=== PATIENT | male | born 1945 | race Caucasian/White ===

== ENCOUNTER 2025-07-07 13:36 | Inpatient (IN) | payer MEDICARE, OTHER, SELFPAY ==
[2025-07-07 06:54] VITALS: BP 162/77
[2025-07-07] MEDS: NSS 1000 IV (07:31)
[2025-07-07] MEDS: TYLENOL 1000 MG PO (07:31)
--- NOTE | 2025-07-07 07:35 | ED.GENMED ---
History of Present Illness
General
Chief Complaint: Chest Pain
Time Seen by Provider: 07/07/25 07:08
History of Present Illness
History of Present Illness:
79-year-old male with history of A-fib status post ablation presenting to the emergency department for left-sided chest pain. Patient reports that he woke up this morning with some left-sided chest pain and substernal chest pain. He checked his
monitor which initially told him that his heart rate was normal. He then had chills and felt very cold so he checked his monitor again and noted that he was tachycardic. He was concerned that he could be in A-fib which prompted him to come to the
hospital. Does note for the past 2-week he has been having some lower back pain and some lower abdominal pain. He was going to go to the orthopedic doctor next week for assessment. Denies any known sick contacts. Denies any associated cough.
Denies any abdominal surgeries in the past. Denies additional acute medical complaints.
Past History
Past History
ED Past Medical History: Cancer (Melanoma Left arm)
ED Past Surgical History: Cardiac (Cardiac ablation)
Social History
Tobacco: Non-smoker
Alcohol: Occasional
Personal:
Living: with family
Phy Exam
Physical Exam
Physical Exam:
General: Well-appearing, no clinical signs of dehydration, nontoxic and in no acute distress
HEENT: protecting airway
Neck: appears supple
CV: Tachycardic, regular rhythm, no evidence of cyanosis
Resp: No accessory muscle use, no increased work of breathing, decreased air movement to left upper lung field
Abd: Soft and non-distended, generalized nonfocal tenderness
Extremities: No deformities, no swelling
Neuro: alert, no focal neurologic deficit
: deferred
Rectal: deferred
Psych: Normal affect
Skin: Intact
Scores
Heart Score for Chest Pain Patients
STEMI patient?: No
History: Slightly or Non-Suspicious
ECG: Nonspecific Repolarization
Age: >/= 65 years
Risk Factors: 1 or 2 Risk Factors
Troponin: </= Normal Limit
Heart Score for Chest Pain Patients: 4
Heart Score Risk: 20.3% MACE over next 6 weeks
Course
Orders/Labs/Results
Orders:
Orders
07/07/25 06:51
Electrocardiogram (*1) Urgent
Reason for Study: Chest Pain
EKG- Treatment ONCE
07/07/25 07:15
CR Chest - 2 Views Urgent
Comment:
Reason For Exam: chest pain
07/07/25 07:20
COVID-19 Antigen Urgent
Source: Nasal Swab
Complete Blood Count/With Diff Urgent
Comprehensive Metabolic Panel Urgent
Direct Bilirubin Urgent
Comment: ADD ON
Lipase Urgent
Troponin I Urgent
Influenza A+B Rapid Molecular Urgent
ALFREDO Source: Nasal Swab
Specimen Description:
07/07/25 07:28
0.9% Sodium Chloride 1000 ml [Nss] 1,000 ml IV BOLUS
Acetaminophen [Tylenol] 1,000 mg .ROUTE .STK-MED ONE
Acetaminophen [Tylenol] 1,000 mg PO NOW STA
07/07/25 07:39
CT Abd/pelvis W Iv Cont Urgent
Comment:
Reason For Exam: fever, generalized pain
07/07/25 09:10
US Abdomen Complete/Upper Urgent
Comment:
Reason For Exam: abd pain, fever, transaminitis and high t.bili
07/07/25 09:11
Urinalysis Reflex To Culture Urgent
Date Specimen was Collected: 07/07/25
Time Specimen was Collected: 08:58
Urine Microscopic Reflex Cult Urgent
07/07/25 09:41
EKG- Treatment ONCE
07/07/25 10:20
Electrocardiogram (*1) Urgent
Reason for Study: Chest Pain
07/07/25 10:22
Troponin I Urgent
07/07/25 10:58
GASTROINTESTINAL CONSULT Routine
Consulting Provider: Shahrzad Loya
Was physician already notified: Yes
07/07/25 11:01
Blood Culture Q30M
ALFREDO Source: Blood/Venous
Specimen Description:
Blood Culture Q30M
ALFREDO Source: Blood/Venous
Specimen Description:
07/07/25 12:00
Piperacillin/Tazo 3.375 Gram [Zosyn] 3.375 gram in 50 ml IV Q6H
07/07/25 12:12
Add On- LAB Routine
Tests Added?: lipase
07/07/25 12:44
MRI Abdomen [MR Abdomen W/o & W Contrast] Routine
Comment:
Reason For Exam: with MRCP - jaundice/fever
Recent pill cam endoscopy?: No
07/07/25 12:45
Admit/Transfer Patient As Directed
Co-Sign Provider:
Level of Care: Inpatient admission
Assign to:: Telemetry
Physician / Group: Margie/hospitalist
Diagnosis: fever, abd pain
Reason for Telemetry: Arrhythmia
Date to Stop Telemetry: 07/10/25
Time to Stop Telemetry: 11:00
Reason for Hospitalization: fever, abd pain
Expected length of stay greater than two midnights?: Yes
ELOS- Estimated Length of Stay in days: 3
I certify the patient meets the requirements for IP care: Yes
PRN Pain Medication Management As Directed
May give lesser potent ordered pain med per pt: Yes
preference::
Protocol:: Medication orders for pain may be administered in a
manner that supports deferring to patient preference
when the pt is:
- Requesting an ordered lesser potent pain medication.
Least to most potent pain medications are defined
as: acetaminophen < NSAID < tramadol < opioids
(morphine, oxycodone, hydromorphone).
- Requesting a lesser dose of the same medication IF
ORDERED.
- Requesting a less intrusive route of administration
if both routes are prescribed by the provider (PO <
IV).
07/07/25 12:46
Code Status As Directed
Resuscitation Status: Full Code
07/07/25 12:55
Add On- LAB Routine
Tests Added?: D bili
07/10/25 11:00
DC Protocol for Telemetry ONCE
Abnormal Lab Results
07/07/25 07/07/25
07:20 09:11
Absolute Lymphs (auto) 0.4 L 10^3/uL
(1.2-3.4)
Neutrophils % 90.7 H %
(42.2-75.2)
Lymphocytes % 6.7 L %
(20.5-51.1)
Monocytes % 1.4 L %
(1.7-9.3)
Chloride 108 H mmol/L
(98-107)
Glucose 108 H mg/dl
(70-99)
Total Bilirubin 3.3 H mg/dl
(0.2-1.3)
Direct Bilirubin 1.8 H mg/dl
(0.0-0.4)
AST 448 H U/L
(17-59)
ALT 230 H U/L
(0-50)
Urine Bacteria (Reflex) Few A
(Negative)
Urine Albumin (Reflex) 1+ A
(Neg - Trace)
07/07/25 07:20
07/07/25 07:20
Vital Signs
Initial and Last Documented VS:
Initial Vital Signs
Temp Pulse Resp BP Pulse Ox
102.4 F H 114 28 162/77 94
07/07/25 06:54 07/07/25 06:54 07/07/25 06:54 07/07/25 06:54 07/07/25 06:54
Last Documented Vital Signs
Temp Pulse Resp BP Pulse Ox
102.4 F H 73 21 162/77 94
07/07/25 06:54 07/07/25 13:15 07/07/25 12:45 07/07/25 06:54 07/07/25 07:38
MDM/Problems Addressed
MDM/Problems Addressed:
79-year-old male with history of A-fib status post ablation presenting for chest pain. Vital signs on arrival significant for fever and mild tachycardia.
On exam, patient is in no acute distress. Regarding initial complaint of chest pain, EKG obtained which does show some changes from prior with some ST depressions laterally. No ST elevation or STEMI criteria. Patient additionally is found to have
fever which makes infectious pathology more likely than ACS. Diminished air movement to the left upper lung field with concern for possible pneumonia versus effusion. Plan for chest x-ray imaging. Additionally, patient reports that he has been
having nonspecific abdominal pain for the past 2 weeks. In the setting of fever and some generalized discomfort on palpation. Will plan for laboratory analysis and CT imaging. Patient started on IV fluids, Tylenol for fever control
09:10 -patient CT shows possible esophagitis, which is not consistent with patient's symptoms. Chest x-ray without pneumonia or acute cardiopulmonary disease. However labs are concerning for elevated T. bili and transaminitis. Choledocholithiasis
is a consideration as well as ascending cholangitis in the setting of fever. Will obtain right upper quadrant ultrasound imaging
10:30 -ultrasound shows gallstones without evidence of acute cholecystitis. There is no obvious ductal dilatation. However given signs of gallstones with transaminitis and elevated T. bili, as well as upper abdominal pain going to the back, cannot
safely rule out obstructing biliary stone. For this reason we will admit for further monitoring and possible MRCP.
*Pulse Oximetry
SaO2: 94
Oxygen Mode of Delivery: Room air
Patient hypoxic: no
*EKG
Interpreted by ED Provider?: Yes
EKG Intrepretation Date: 07/07/25
EKG Intrepretation Time: 07:40
Interpretation: abnormal
Comparison EKG: changes noted (03/27/23)
Heart Rate: 106
Rate: tachycardiac
Rhythm: sinus
[place]: normal axis
Interval: normal interval
QRS Pattern: normal QRS
Ischemia: ST depression (laterally)
*Critical Care Note
Total Time (30-74mins, 75-104mins- exclusive of procedures): Not Applicable
ED Attending Note
-
Portions of this chart may have been created with voice recognition software.� Occasional wrong word or��sound alike� substitutions may have occurred due to the inherent limitations of voice recognition software.
Discharge Plan
Departure
Patient Disposition: Admit
Date of Disposition: 07/07/25
Time of Disposition: 10:55
Presentation/result/management discussed w/ accepting MD/DO: Hospitalist
Patient with high blood pressure during this ER visit?: No
Condition: Fair
Discharge Problem:
Fever, Abdominal pain, Transaminitis
Interventions
Interventions:
*Risk Screen - Suicide Last Done: 07/07/25 06:54
*General Assessment Last Done: 07/07/25 06:54
*Neglect/Abuse Screening Last Done: 07/07/25 06:54
*ED COVID-19 Vaccine History Last Done: 07/07/25 06:54
*ED Influenza Vaccine History Last Done: 07/07/25 06:54
ED- Cardiac Assessment Last Done: 07/07/25 07:47
[2025-07-07 07:39] LABS: Hematocrit 43.3 % (39.0-52.0); Hemoglobin 14.8 g/dL (13.0-18.0); Mean Corp Hgb Conc. 34.2 g/dL (33.0-37.0); Mean Corpuscular Volume 89.3 fL (80.0-94.0); Nucleated Red Blood Cells % 0 % (-); Platelet Count 153 10^3/uL (130-400); Red Cell Dist. Width 13.4 % (11.5-14.5)
[2025-07-07 07:50] LABS: ALT (SGPT) 230 U/L (0-50); AST (SGOT) 448 U/L (17-59); Albumin 4.1 g/dl (3.5-5.0); Alkaline Phosphatase 79 U/L (38-126); Blood Urea Nitrogen 20 mg/dl (9-20); Calcium 9.2 mg/dl (8.4-10.2); Carbon Dioxide 23 mmol/L (22-30); Chloride 108 mmol/L (98-107); Glucose 108 mg/dl (70-99); Potassium 4.2 mmol/L (3.5-5.1); Sodium 139 mmol/L (135-145); Total Protein 7.0 g/dl (6.3-8.2); eGFR > 60.00
[2025-07-07 07:55] LABS: COVID-19 Antigen Negative (Negative)
[2025-07-07 08:01] LABS: Troponin I 0.015 ng/ml
[2025-07-07 09:33] LABS: Urine Character Clear (Clear)
[2025-07-07 10:04] LABS: Urine Red Blood Cell 0-2 /HPF (0-2)
[2025-07-07 10:05] LABS: Urine White Cell 0-2 /HPF (0-5)
[2025-07-07 11:00] LABS: Troponin I 0.032 ng/ml
[2025-07-07 11:41] VITALS: BMI 35.9
--- NOTE | 2025-07-07 12:01 | HPS.HSE ---
Family Physician
-
Family Physician: Randy Cassidy
Chief Complaint
-
R sided Abd pain
History of Present Illness
HPI: 79-year-old male with PMH A-fib status post ablation, achalasia after ablation; p/w chest pain that woke him up in the morning.
He also c/o chills and felt tachycardic, with concern of being in A fib, hence presented to the hospital.
He c/o lower abdominal pain for about 2 weeks, and ongoing lower back pain for about 1 month.
Denies to other symptoms.
Medical History
Past Medical History
Past Medical History: Reports Arrhythmia and Other (melanoma)
Additional Past Medical History:
A-fib status post ablation
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
Past Surgical History: Reports Cardiac
Additional Past Surgical History:
A-fib status post ablation
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
Social History
Tobacco: Non-smoker
Alcohol: Occasional
Drug: None
Personal:
Living: With Family
Family History
Family History: Not pertinent
Allergies / Home Medications
Allergies reflects when Allergies were last updated in [facility].
Home Medications with original date entered in [facility]
Allergy/Medication List:
Allergies
Allergy/AdvReac Type Severity Reaction Status Date / Time
[id number] Reductase AdvReac myalgias, Verified 03/28/23 13:53
Inhibitor insomnia
Home Medications
coenzyme Q10 100 mg capsule (Co Q-10) 300 mg PO QPM Supplement 04/28/21
cholecalciferol (vitamin D3) 250 mcg (10,000 unit) tablet 250 mcg PO QPM Supplement 03/12/23
niacin 100 mg tablet 100 mg PO DAILY Supplement 07/07/25
therapeutic multivitamin 1 tab PO DAILY Supplement 07/07/25
Review of Systems
-
Abdomen/GI: Reports Abdominal Pain (RUQ, epigastric )
Musculoskeletal: Reports Other (BL lower back pain)
Physical Exam
Vital Signs
Vital Signs
Temp Pulse Resp BP Pulse Ox
39.1 C H 114 28 162/77 94
07/07/25 06:54 07/07/25 06:54 07/07/25 06:54 07/07/25 06:54 07/07/25 07:38
Physical Exam
General: Well Developed, Well Nourished, No Apparent Distress, Comfortable, Conversant and Obese
HEENT: NormoCephalic, Moist mucous membranes and Atraumatic
Respiratory: Clear and Non Labored Respirations; No Accessory Resp Muscle Use
Cardiac: S1/S2 and Regular Rhythm; No Murmur or Rub
GI: Soft, Non Tender, Non Distended and Normal Bowel Sounds; No Organomegaly
Rectal: Deferred by Provider
Musculoskeletal: No Clubbing, No Cyanosis and No Edema
Skin: No Rash
Neuro: Awake, Alert and Oriented
Psych: Calm and Intact Judgment/Insight
Laboratory Results
-
07/07/25 07:20
07/07/25 07:20
Laboratory Results
Total Bilirubin 3.3 mg/dl (0.2-1.3) H 07/07/25 07:20
AST 448 U/L (17-59) H 07/07/25 07:20
ALT 230 U/L (0-50) H 07/07/25 07:20
Alkaline Phosphatase 79 U/L (38-126) 07/07/25 07:20
Troponin I 0.032 ng/ml D 07/07/25 10:22
Data Reviewed
-
CT Scan: Report Reviewed by me
Ultrasound: Report Reviewed by me
Lab Data: Labs Reviewed by me
Impression/Plan
-
HPI: 79-year-old male with PMH A-fib status post ablation, achalasia after ablation; p/w chest pain that woke him up in the morning.
He also c/o chills and felt tachycardic, with concern of being in A fib, hence presented to the hospital.
He c/o lower abdominal pain for about 2 weeks, and ongoing lower back pain for about 1 month.
Denies to other symptoms.
Admission CT AP:
1. Mild wall thickening of the distal esophagus, which may be related to esophagitis or Donovan's esophagus.
2. No evidence of intestinal obstruction, bowel inflammatory process, nephrolithiasis, hydronephrosis, cholecystitis, or abscess formation.
3. Colonic diverticulosis without evidence of acute diverticulitis.
Abd US:
1. Multiple gallstones are seen within the gallbladder. No sonographic evidence of acute cholecystitis.
2. No additional sonographic abnormalities demonstrated.
A/P:
# likely sepsis POA, source ?ascending cholangitis
# transaminitis likely due to above
# Localized chest pain likely due to esophagitis noted on CT
Check MRI MRCP
Follow lipase level
Follow blood cultures x2
Start Zosyn
Admission UA showed few bacteremia, otherwise unrevealing
GI CS for possible cholangitis
# Lower back pain
CT showed No focal aggressive osseous lesions are seen. Mild degenerative change within the lumbar spine.
PT OT eval when able
# h/o A-fib status post ablation
not on AC
DVT ppx: Lovenox SQ
FC
DW at bedside
--- NOTE | 2025-07-07 12:06 | CON.GI ---
Addendum entered and electronically signed by Benja Bond MD 07/07/25 13:55:
Patient seen and examined, agree with nurse practitioner note. The patient is a 79-year-old male with past medical history as noted who presents with acute onset of epigastric pain. This morning awaking him from sleep had epigastric pain without
radiation or vomiting. He felt shaky though no fever at that time. Upon presentation he was found to have elevated LFTs with a bilirubin of 3.3, AST 448, ALT 230. He denies any pain similar to this in the past. His urine has been dark today. He
did have a fever to 102.4 in the emergency room though is now feeling much better with no further pain, nausea or vomiting. He does have a history of achalasia without treatment, though has not had any significant symptoms. By report he had an
evaluation of the [facility] though did not have any treatment. His last colonoscopy to [facility] was essentially remarkable by report. On exam he has mild epigastric tenderness and is jaundiced and icteric. Ultrasound showed
multiple gallstones though no suggestion of cholecystitis and no CBD dilation. CT scan of the chest showed small liver cyst and mild wall thickening of the distal esophagus.
1. Epigastric pain/elevated LFTs: Most consistent with CBD stone, possibly spontaneously passed given resolution of symptoms and normal size CBD. Cholecystitis is possible though again no obvious thickening noted on ultrasound and her symptoms
have improved. At this point we will await MRI, if positive for CBD stone we will plan ERCP. Would consult surgery as would recommend cholecystectomy at some point. Will continue await blood cultures and continue to biotics for now.
Original Note:
Consultation
-
Date/Time Consultation Requested: 07/07/25 1100
Date/Time Consultation Performed: 07/07/25 1200
Requesting Provider: Tori Hanson MD
Performing Provider: ASHISH Salas, Shahrzad Loya DO
Reason for Consultation: increased LFT's, fever, pain
Medical History
Chief Complaint / HPI
Chief Complaint: chest/abdominal pain
History of Present Illness:
Pt is a 79yo with hx PAF with prior ablation off anticoagulation, melanoma and basal cell CA, hypercholesterolemia, obesity, abnormal fasting glucose, achalasia with prior food impaction with onset of epigastric pain 07/06 then indigestion with
rigors at 4 am on 07/07 prompting ER evaluation. He initially was concern for cardiac issue and noted with some tachycardia prior to admission. On admission noted with stable CBC, but bili 3.3, AST 448, ALT 230, al phos 79 with rise in troponin
to 0.032 after admission and fever 102.4. Pt also admits to lower back pain over last month with Ibuprofen use of 6 tabs on 07/06. Pt otherwise admits to dark urine and chronic mild dysphagia but doing well with slow eating and drinking fluids
with meals. He denies odynophagia, nausea, vomiting, diarrhea, constipation, blood or black in stools. Last EGD 2022 with food impaction and colonoscopy at [facility]. He was due 2023 but not completed yet. No anticoagulation, no recent wt loss or
wt loss medications. Only on Vitamins. Imaging on admission with CT chest with distal esophageal thickening -esophagitis/mondragon's, diverticulosis, no GB thickening or CBD dilatation. US with multiple stones no thickening or biliary dilatation.
Past Medical History
Past Medical History: Arrhythmias (PAF), Cancer (melanoma), Hypercholesterolemia and Other (obesity, abnormal fasting glucose, achalasia)
Past Surgical History: Cardiac (ablation) and Other (melanoma and basal cell excision)
Social History
Tobacco: Non-Smoker
Alcohol: Occasional
Personal:
Living: With Family
Employment: Retired
Family History
Family History: Other (grandmother, father and uncle with colon CA)
Allergies / Home Medications
Allergy/AdvReac Type Severity Reaction Status Date / Time
[id number] Reductase AdvReac myalgias, Verified 03/28/23 13:53
Inhibitor insomnia
�Medication �Instructions �Recorded
coenzyme Q10 100 mg capsule (Co 300 mg PO QPM Supplement 04/28/21
Q-10)
cholecalciferol (vitamin D3) 250 250 mcg PO QPM Supplement 03/12/23
mcg (10,000 unit) tablet
niacin 100 mg tablet 100 mg PO DAILY Supplement 07/07/25
therapeutic multivitamin 1 tab PO DAILY Supplement 07/07/25
Review of Systems
-
History Source: Patient and Family
Constitutional: Reports Fever, Weight Gain and Other (rigors)
EENT: Reports No Symptoms
Respiratory: Reports No Symptoms
Cardiac: Reports Other (tachy)
Abdomen/GI: Reports Abdominal Pain and Other (indigestion)
: Reports Dark Urine
Musculoskeletal: Reports No Symptoms
Skin: Reports No Symptoms
Neurological: Reports Weakness
Endocrine: Reports No Symptoms
Hematologic/Lymphatic: Reports No Symptoms
Vital Signs
Temp Pulse Resp BP Pulse Ox
102.4 F H 114 28 162/77 94
07/07/25 06:54 07/07/25 06:54 07/07/25 06:54 07/07/25 06:54 07/07/25 07:38
Physical Exam
Exam
General: Well Developed and Well Nourished
HEENT: Other (slight jaundice )
Respiratory: Clear
Cardiac: Other (tachy)
GI: Soft, Non Distended and Tender (mild epigastric pain)
Musculoskeletal: No Clubbing and No Cyanosis
Skin: Warm and Dry
Neuro: Awake, Alert and AO x 3
Psych: Calm
Results
WBC 6.4 10^3/uL (4.8-10.8) 07/07/25 07:20
Hgb 14.8 g/dL (13.0-18.0) 07/07/25 07:20
Hct 43.3 % (39.0-52.0) 07/07/25 07:20
MCV 89.3 fL (80.0-94.0) 07/07/25 07:20
Plt Count 153 10^3/uL (130-400) 07/07/25 07:20
Absolute Neuts (auto) 5.8 10^3/uL (1.4-6.5) 07/07/25 07:20
Sodium 139 mmol/L (135-145) 07/07/25 07:20
Potassium 4.2 mmol/L (3.5-5.1) 07/07/25 07:20
Chloride 108 mmol/L (98-107) H 07/07/25 07:20
Carbon Dioxide 23 mmol/L (22-30) 07/07/25 07:20
BUN 20 mg/dl (9-20) 07/07/25 07:20
Creatinine 0.7 mg/dL (0.7-1.3) 07/07/25 07:20
Calcium 9.2 mg/dl (8.4-10.2) 07/07/25 07:20
Total Bilirubin 3.3 mg/dl (0.2-1.3) H 07/07/25 07:20
AST 448 U/L (17-59) H 07/07/25 07:20
ALT 230 U/L (0-50) H 07/07/25 07:20
Alkaline Phosphatase 79 U/L (38-126) 07/07/25 07:20
Diagnostic Image Results:
07/07/25 CXR
1. Clear lungs.
2. No significant change compared to prior study.
07/07/25 Ct chest
1. Mild wall thickening of the distal esophagus, which may be related to esophagitis or Mondragon's esophagus.
2. No evidence of intestinal obstruction, bowel inflammatory process, nephrolithiasis, hydronephrosis, cholecystitis, or abscess formation.
3. Colonic diverticulosis without evidence of acute diverticulitis.
Liver: No focal liver masses appreciated. Small hepatic cyst measures 6 mm in diameter.
Attenuation of the liver is within normal limits, and the hepatic contour is smooth.
No filling defects are seen within the opacified portal or hepatic veins.
Gallbladder: There is no significant dilation of the gallbladder. No radiopaque gallstones are appreciated, and there is no significant pericholecystic inflammatory change.
Bile Ducts: No significant biliary ductal dilation.
07/07/25 US Abdomen Complete/Upper
1. Multiple gallstones are seen within the gallbladder. No sonographic evidence of acute cholecystitis.
No significant gallbladder wall thickening or pericholecystic fluid.
No significant biliary ductal dilation is demonstrated. The common duct is normal, measuring 3 mm in diameter.
2022 esophagram Achalasia is suspected with resultant delayed esophageal emptying and tertiary contractions/esophageal dysmotility.
������----04/14/23 Esophageal manometry with impedance study completed. 24 hr pH impedance study was deferred as the manometry is c/w achalasia.
Prior GI Procedures:
EGD: 03/2023 [facility] - Fluid and small pieces of food in the middle third
of the esophagus.
- Abnormal esophageal motility. Concern for achalasia
vs other motility disorder.
- Food (residue) in the stomach.
- Normal examined duodenum.
- No specimens collected.
Colonoscopy: due 2023 not completed prior [facility] colorectal
Assessment / Plan
-
Pt is a 79yo with hx PAF with prior ablation off anticoagulation, melanoma and basal cell CA, hypercholesterolemia, obesity, abnormal fasting glucose, achalasia with prior food impaction with onset of epigastric pain 07/06 then indigestion with
rigors at 4 am on 07/07 prompting ER evaluation. He initially was concern for cardiac issue and noted with some tachycardia prior to admission. On admission noted with stable CBC, but bili 3.3, AST 448, ALT 230, al phos 79 with rise in troponin
to 0.032 after admission and fever 102.4. Pt also admits to lower back pain over last month with Ibuprofen use of 6 tabs on 07/06. Pt otherwise admits to dark urine and chronic mild dysphagia but doing well with slow eating and drinking fluids
with meals. He denies odynophagia, nausea, vomiting, diarrhea, constipation, blood or black in stools. Last EGD 2022 with food impaction and colonoscopy at [facility]. He was due 2023 but not completed yet. No anticoagulation, no recent wt loss or
wt loss medications. Only on Vitamins. Imaging on admission with CT chest with distal esophageal thickening -esophagitis/mondragon's, diverticulosis, no GB thickening or CBD dilatation. US with multiple stones no thickening or biliary dilatation.
-onset of rigor/fever
- indigestion/epigastric pain/dark urine
-increased LFT's
-CT chest with distal esophageal thickening
-tachycardia
-mild troponin elevation
-cholelithiasis
-back pain with recent NSAID use
other med problems:
-PAF with prior ablation off anticoagulation
-melanoma/basal cell CA
-obesity - no wt loss medication and recent wt gain
-hx abnormal fasting glucose
-achalasia/prior food impaction
-family hx colon CA
PLAN:
Etiology of symptoms concern for biliary etiology-bacteremia with noted rigors/fever with rise in LFT's on admission vs other infectious etiology vs other
US and CT chest as noted with no biliary dilatation
if + stone on MRI then proceed with ERCP
can also consider EGD for esophageal thickening vs OP eval
add lipase and D bili
trend labs
blood cx pending
will hold Lovenox and add compression stocking in case endoscopic procedure needed
IV Zosyn started in ER
will add MRI with MRCP to eval for CBD stone
pt due OP follow up and eventual colonoscopy
family updated on bedside
work up per medical team with midl troponin elevation for repeat later today
reviewed with Dr. Hanson
-
-
-
Thank you for consultation and allowing me to participate in the patient's care. Please call the boiler control technician GI physician during the after hours with any questions or concerns.
[2025-07-07] MEDS: ZOSYN 50 IV ×3 (12:26→23:39)
[2025-07-07 13:17] LABS: Lipase 231 U/L (23-300)
[2025-07-07 14:09] VITALS: BP 120/64
[2025-07-07 15:01] VITALS: BP 121/64
[2025-07-07 16:04] VITALS: BP 140/70; BMI 34.8
[2025-07-07 16:14] VITALS: BMI 34.8
[2025-07-07 17:04] LABS: Urine Character Clear (Clear)
[2025-07-07 17:17] LABS: Urine Red Blood Cell 0-2 /HPF (0-2); Urine Squamous Cell 0-2 /LPF (Few); Urine White Cell 0-2 /HPF (0-5)
[2025-07-07 18:01] LABS: Troponin I 0.025 ng/ml
[2025-07-07 19:38] VITALS: BP 144/66
[2025-07-07] MEDS: DILAUDID 0.25 MG IV (21:36)
[2025-07-07 23:38] VITALS: BP 141/72
[2025-07-08] VITALS (7 sets, daily range): BP systolic 129–155; BP diastolic 71–80; BMI 34.2
[2025-07-08] MEDS: ZOSYN 50 IV ×4 (05:55→23:34)
[2025-07-08 06:31] LABS: Hematocrit 39.4 % (39.0-52.0); Hemoglobin 13.4 g/dL (13.0-18.0); Mean Corp Hgb Conc. 34.0 g/dL (33.0-37.0); Mean Corpuscular Volume 91.2 fL (80.0-94.0); Nucleated Red Blood Cells % 0 % (-); Platelet Count 136 10^3/uL (130-400); Red Cell Dist. Width 13.9 % (11.5-14.5)
[2025-07-08 06:45] LABS: Troponin I 0.026 ng/ml
[2025-07-08 06:48] LABS: ALT (SGPT) 273 U/L (0-50); AST (SGOT) 210 U/L (17-59); Albumin 3.4 g/dl (3.5-5.0); Alkaline Phosphatase 65 U/L (38-126); Blood Urea Nitrogen 18 mg/dl (9-20); Calcium 8.8 mg/dl (8.4-10.2); Carbon Dioxide 23 mmol/L (22-30); Chloride 107 mmol/L (98-107); Estimated Creatinine Clearance 92 ml/min; Glucose 94 mg/dl (70-99); Potassium 4.0 mmol/L (3.5-5.1); Sodium 136 mmol/L (135-145); Total Protein 6.2 g/dl (6.3-8.2); eGFR > 60.00
--- NOTE | 2025-07-08 06:52 | W.PN.GI.CBS2 ---
Today's Communication / Plan
-
Please see assessment and plan for details.
Assessment / Plan
-
1. Epigastric pain/elevated LFTs: Suspicious for possible CBD stone, possibly passed given resolution of pain and much improved ALT and AST. Bilirubin is elevated today, though sometimes can be delayed. Will check direct bilirubin to further
clarify. Will await MRI, and if positive for CBD stone then we will plan ERCP. Will continue to biotics for now. Would consult surgery for eventual cholecystectomy.
2. History of achalasia : Had followed at the [facility], though no intervention was done, no significant symptoms now.
-
Subjective
Subjective
Date of Service: July 08, 2025
Patient overall feeling better, no further fevers, discomfort much improved, no nausea or vomiting, chills.
Objective
Data Reviewed
Laboratory Data:
Laboratory Results
07/08/25 06:07
07/08/25 06:07
Laboratory Results
Total Bilirubin 7.0 mg/dl (0.2-1.3) H D 07/08/25 06:07
AST 210 U/L (17-59) H 07/08/25 06:07
ALT 273 U/L (0-50) H 07/08/25 06:07
Alkaline Phosphatase 65 U/L (38-126) 07/08/25 06:07
Lipase 231 U/L (23-300) 07/07/25 07:20
Vital Signs and I&O:
Vital Signs
Temp Pulse Resp BP Pulse Ox
98.3 F 80 22 140/73 93
07/08/25 03:44 07/08/25 03:44 07/08/25 03:44 07/08/25 03:44 07/08/25 03:44
Physical Exam
Physical Exam
Minimal epigastric tenderness
[2025-07-08] MEDS: TYLENOL 650 MG PO ×2 (08:04→13:26)
--- NOTE | 2025-07-08 09:50 | W.PN.HOSP.TC ---
Today's Communication/Plan
-
see A/P
Assessment / Plan
Assessment / Plan
HPI: 79-year-old male with PMH A-fib status post ablation, achalasia after ablation; p/w chest pain that woke him up in the morning.
He also c/o chills and felt tachycardic, with concern of being in A fib, hence presented to the hospital.
He c/o lower abdominal pain for about 2 weeks, and ongoing lower back pain for about 1 month.
Denies to other symptoms.
Admission CT AP:
1. Mild wall thickening of the distal esophagus, which may be related to esophagitis or Donovan's esophagus.
2. No evidence of intestinal obstruction, bowel inflammatory process, nephrolithiasis, hydronephrosis, cholecystitis, or abscess formation.
3. Colonic diverticulosis without evidence of acute diverticulitis.
Abd US:
1. Multiple gallstones are seen within the gallbladder. No sonographic evidence of acute cholecystitis.
2. No additional sonographic abnormalities demonstrated.
A/P:
# severe sepsis POA, source likely ascending cholangitis with bacteremia
# transaminitis likely due to above , improving
# Localized chest pain likely due to esophagitis noted on CT
Check MRI MRCP
Admission blood cultures grew Klebsiella, follow repeat blood culture until clearance
Cont Zosyn
Admission UA showed few bacteremia, otherwise unrevealing
GI on board
# Lower back pain
CT showed No focal aggressive osseous lesions are seen. Mild degenerative change within the lumbar spine.
PT OT eval when able
# h/o A-fib status post ablation
not on AC
DVT ppx: SCD (pt has been refusing)
FC
DW RN
Anticipated Discharge: > 48 hours
Subjective/Interval History
-
Date of Service: July 08, 2025
Objective Data
-
Labs:
Laboratory Results
07/08/25
06:07
WBC 10.8
Hgb 13.4
Hct 39.4
Plt Count 136
Sodium 136
Potassium 4.0
Chloride 107
Carbon Dioxide 23
BUN 18
Creatinine 0.8
Glucose 94
Calcium 8.8
Total Bilirubin 7.0 H D
AST 210 H
ALT 273 H
Alkaline Phosphatase 65
Vital Signs:
Vital Signs
Temp Pulse Resp BP Pulse Ox
37.3 C 84 12 143/74 95
07/08/25 07:00 07/08/25 07:00 07/08/25 07:00 07/08/25 07:00 07/08/25 08:06
Review of Systems
-
History Source: Patient
All other systems: Reviewed and negative
Abdomen/GI: Denies Abdominal Pain (much resolved )
Physical Exam
-
General: Well Developed, Well Nourished, No Apparent Distress, Comfortable and Conversant; Negative Respiratory Distress
HEENT: Normocephalic, Atraumatic, Nose Appears Normal and Ears Appear Normal; Negative Oxygen
Respiratory: Clear to Auscultation and Non Labored Respirations; Negative Accessory Resp Muscle Use
Cardiac: Regular Rhythm and S1/S2
GI: Soft, Nontender, Nondistended and Normal Bowel Sounds
Skin: Warm and Dry
Neuro: Awake, Alert, Oriented, AO x 3 and Nonfocal/Grossly Intact
Psych: Calm and Intact Judgement/Insight
Data Reviewed
-
CT Scan: Report Reviewed by me
Ultrasound: Report Reviewed by me
Labs: Labs Reviewed by me
[2025-07-08] MEDS: FLUSH (NSS) 1 FLUSH IV ×2 (12:10→17:27)
--- NOTE | 2025-07-08 13:17 | W.PN.UPDATE ---
Update Note
Progress Note Update
MRI reviewed, no duct dilation or evidence of CBD stone. There was cholelithiasis and biliary sludge noted though no evidence of cholecystitis. At this point we will start low-fat diet, continue to trend LFTs. Likely spontaneously passed CBD
stone. Would consider surgical evaluation for cholecystectomy.
--- NOTE | 2025-07-08 16:05 | PTCARENOTE ---
Pt AAOx3, MICHEL well, ambulatory to BR, tez well. VSS. Telemetry:NSR with PAC's/PVC's. On room air- pulse ox 95%, no SOB noted. Abd obese, round, no c/o abd discomfort at present. Tez low fat diet. Voids in BR without difficulty. Resting in bed
at present. Will continue to monitor.
--- NOTE | 2025-07-08 16:58 | CM ---
Alert awake oriented patient who lives with his Alayna who lives in a 2 story home with 1 step to enter and 0 steps to bed and bathroom. He is independent in driving and in all activities of daily living.He was offered VN he declined need.His
will drive him home.
No VN hx / No SNF history
Pharmacy [facility]
PCP DR Cassidy
PLAN Home Declined VN
--- NOTE | 2025-07-08 20:36 | PTCARENOTE ---
Addendum entered by Justina Roy RN 07/08/25 22:24:
pt did not wish to take the Maalox as he felt it might make him nauseous. Addie Champion aware. He is now without pain and resting comfortably
Addendum entered by Justina Roy RN 07/08/25 21:02:
Protonix and Maalox also ordered. RN asked pt if he needed pain medication and he declined. reviewed medications ordered with patient. questions answered.
Original Note:
pt with c/o chest discomfort. says he ate for the first time today so isn't sure if it is indigestion. pt is very anxious at the moment and is complaining about how cold the room is. He is Sinus Rhythm on the monitor. Addie HINOJOSA made
aware, ekg to be done and will order labs
[2025-07-08] MEDS: NSS (PRESERVATIVE FREE) 10 ML IV (20:55)
[2025-07-08] MEDS: PROTONIX IV 40 MG IV (20:55)
[2025-07-08 21:52] LABS: Troponin I 0.023 ng/ml
[2025-07-09] VITALS (12 sets, daily range): BP systolic 128–148; BP diastolic 65–85
[2025-07-09] MEDS: ZOSYN 50 IV ×3 (06:03→23:51)
[2025-07-09 06:53] LABS: ALT (SGPT) 198 U/L (0-50); AST (SGOT) 105 U/L (17-59); Albumin 3.5 g/dl (3.5-5.0); Alkaline Phosphatase 82 U/L (38-126); Blood Urea Nitrogen 14 mg/dl (9-20); Calcium 8.7 mg/dl (8.4-10.2); Carbon Dioxide 24 mmol/L (22-30); Chloride 105 mmol/L (98-107); Estimated Creatinine Clearance 92 ml/min; Glucose 104 mg/dl (70-99); Potassium 3.8 mmol/L (3.5-5.1); Sodium 133 mmol/L (135-145); Total Protein 6.5 g/dl (6.3-8.2); eGFR > 60.00
[2025-07-09 07:02] LABS: Hematocrit 39.7 % (39.0-52.0); Hemoglobin 13.3 g/dL (13.0-18.0); Mean Corp Hgb Conc. 33.5 g/dL (33.0-37.0); Mean Corpuscular Volume 92.3 fL (80.0-94.0); Nucleated Red Blood Cells % 0 % (-); Platelet Count 124 10^3/uL (130-400); Red Cell Dist. Width 13.8 % (11.5-14.5)
[2025-07-09 08:30] LABS: Lipase 106 U/L (23-300)
--- NOTE | 2025-07-09 10:21 | CON.GS ---
Medical History
-
Chief Complaint: Abdominal pain
History of Present Illness:
Patient is a 79 yo M with a PMH of morbid obesity, A-fib s/p ablation, and achalasia? who presented to the hospital with epigastric abdominal pain, fevers, chills. Symptoms began acutely on Friday night awaking him from sleep. Symptoms
persisted and he noted tachycardia prompting presentation and admission to the hospital on 07/07. Denies any prior episodes of abdominal pain or discomfort. Denies any knowledge of gallbladder issues. Previously tolerating a regular diet. His
symptoms have improved, however, he had an episode of similar abdominal discomfort and chills yesterday evening. She reports paler stools and tea colored urine, noted to be jaundiced. No family history.
Past Medical History
Past Medical History: Arrhythmias (A-fib) and Other (Obesity, melanoma s/p excision, achalasia?)
Past Surgical History: Cardiac (Ablation)
Social History
Tobacco: Non-Smoker
Alcohol: None
Drug: None
Personal:
Living: With Family
Family History
Family History: Reviewed & Noncontributory
Allergies / Home Medications
Allergy/AdvReac Type Severity Reaction Status Date / Time
[id number] Reductase AdvReac myalgias, Verified 03/28/23 13:53
Inhibitor insomnia
�Medication �Instructions �Recorded �Confirmed �Type
coenzyme Q10 100 mg capsule (Co 300 mg PO QPM Supplement 04/28/21 07/07/25 History
Q-10)
cholecalciferol (vitamin D3) 250 250 mcg PO QPM Supplement 03/12/23 07/07/25 History
mcg (10,000 unit) tablet
niacin 100 mg tablet 100 mg PO DAILY Supplement 07/07/25 07/07/25 History
therapeutic multivitamin 1 tab PO DAILY Supplement 07/07/25 07/07/25 History
Review of Systems
-
A 10 point review of systems was completed, and was negative except as per HPI.
Physical Exam
Vital Signs
Temp Pulse Resp BP Pulse Ox
97.9 F 65 16 148/69 96
07/09/25 07:41 07/09/25 07:41 07/09/25 07:41 07/09/25 07:41 07/09/25 07:41
07/08/25 07/09/25 07/10/25
06:59 06:59 05:59
Actual Weight 105.007 kg
Body Mass Index (BMI) 34.2
Lab Results
07/09/25 05:25
07/09/25 05:25
WBC 7.2 10^3/uL (4.8-10.8) 07/09/25 05:25
Hgb 13.3 g/dL (13.0-18.0) 07/09/25 05:25
Hct 39.7 % (39.0-52.0) 07/09/25 05:25
Plt Count 124 10^3/uL (130-400) L 07/09/25 05:25
Abs Immat Gran (auto) 0.0 10^3/uL (0-0.05) 07/09/25 05:25
Neutrophils % 76.5 % (42.2-75.2) H 07/09/25 05:25
Physical Exam
General: Well Developed, Well Nourished and No Apparent Distress
HEENT: Normocephalic and Scleral Icterus
Respiratory: Non Labored Respirations
Cardiac: Regular Rhythm
GI: Soft, Tender (Mild epigastric and RUQ, negative Easton's sign), Obese and Other (No diffuse peritonitis)
Musculoskeletal: No Edema
Skin: Warm and Dry
Neuro: Nonfocal/Grossly Intact
Data Reviewed
-
CT Scan: Image Personally Visualized and interpreted and Report Reviewed by me
Ultrasound: Image Personally Visualized and interpreted and Report Reviewed by me
MRI: Image Personally Visualized and interpreted and Report Reviewed by me
Old Records: Reviewed
Assessment / Plan
-
Patient is a 79 yo M p/w likely choledocholithiasis with cholangitis
Workup including ultrasound, CT scan, MRI, and labs were reviewed. MRI noted to be negative for choledocholithiasis. Labs noted to be trending down. The natural history and pathophysiology of biliary and stone disease was discussed. Anatomy was
reviewed. Options for management were reviewed. Given his persistent attacks of discomfort last night recommend cholecystectomy during this admission.
Plan for laparoscopic cholecystectomy with cholangiogram. The procedure itself, as well as the risks, benefits, and alternatives was discussed. Specifically, we discussed the risk of bleeding, infection, injury to surrounding structures (bowel,
bile ducts), CBD injury, need for procedure. Typical postprocedural recovery including activity restrictions in the 10 to 20% risks of fluctuations in GI function were discussed. All questions answered. Consent signed.
-- Laparoscopic cholecystectomy with IOC
-- NPO, IVF
-- Abx: Zosyn
--- NOTE | 2025-07-09 10:28 | W.SUR.PREOP ---
Pre-Operative Surgical Note
-
I have examined this patient prior to the performance of the scheduled procedure.
The patient's condition is unchanged from the time of the current History and
Physical and the patient is able to undergo the scheduled procedure.
--- NOTE | 2025-07-09 10:40 | W.PN.GI.CBS2 ---
Today's Communication / Plan
-
Please see assessment and plan for details.
Assessment / Plan
-
1. Epigastric pain/elevated LFTs: Suspicious for possible CBD stone likely passed given resolution of pain, though had another episode last night. LFTs are significantly improved and MRI was negative. Likely cholangitis given his bacteremia and
previous fever, though no leukocytosis, overall doing better, on antibiotics. With negative MRI and improved LFTs he is for cholecystectomy with IOC, continue to biotics.
2. History of achalasia : Had followed at the [facility], though no intervention was done, no significant symptoms now.
-
Subjective
Subjective
Date of Service: July 09, 2025
Another episode patient had another episode of biliary colic and chills last night, though afebrile. He is feeling much better today. LFTs are improved. MRI was negative for CBD stone. Blood cultures were positive for Klebsiella.
Objective
Data Reviewed
Laboratory Data:
Laboratory Results
07/09/25 05:25
07/09/25 05:25
Laboratory Results
Total Bilirubin 4.1 mg/dl (0.2-1.3) H 07/09/25 05:25
AST 105 U/L (17-59) H 07/09/25 05:25
ALT 198 U/L (0-50) H 07/09/25 05:25
Alkaline Phosphatase 82 U/L (38-126) 07/09/25 05:25
Lipase 106 U/L (23-300) 07/09/25 05:25
Vital Signs and I&O:
Vital Signs
Temp Pulse Resp BP Pulse Ox
97.9 F 65 16 148/69 96
07/09/25 07:41 07/09/25 07:41 07/09/25 07:41 07/09/25 07:41 07/09/25 07:41
I&O
07/08/25 07/09/25 07/10/25
06:59 06:59 05:59
Intake Total 980 / 980
Balance 980 / 980
Physical Exam
Physical Exam
General: NAD
Abdomen: normal bowel sounds, soft, no tenderness, no masses or bruits, no ascites
--- NOTE | 2025-07-09 11:17 | W.PN.HOSP.TC ---
Today's Communication/Plan
-
see AP
Assessment / Plan
Assessment / Plan
HPI: 79-year-old male with PMH A-fib status post ablation, achalasia after ablation; p/w chest pain that woke him up in the morning.
He also c/o chills and felt tachycardic, with concern of being in A fib, hence presented to the hospital.
He c/o lower abdominal pain for about 2 weeks, and ongoing lower back pain for about 1 month.
Denies to other symptoms.
Admission CT AP:
1. Mild wall thickening of the distal esophagus, which may be related to esophagitis or Donovan's esophagus.
2. No evidence of intestinal obstruction, bowel inflammatory process, nephrolithiasis, hydronephrosis, cholecystitis, or abscess formation.
3. Colonic diverticulosis without evidence of acute diverticulitis.
Abd US:
1. Multiple gallstones are seen within the gallbladder. No sonographic evidence of acute cholecystitis.
2. No additional sonographic abnormalities demonstrated.
A/P:
# severe sepsis POA, source likely ascending cholangitis with bacteremia
# transaminitis likely due to above, improving
# Localized chest pain likely due to esophagitis noted on CT
MRI MRCP did not show bile duct dilatation, no choledocholithiasis. Noted cholelithiasis and biliary sludge. No evidence to suggest acute cholecystitis.
Admission blood cultures grew Klebsiella, follow sensitivity
repeat blood culture negative
Cont Zosyn
appreciate GI input
GS CS for eval of per alma , plan for today 07/09
# Lower back pain
CT showed No focal aggressive osseous lesions are seen. Mild degenerative change within the lumbar spine.
Suspect due to body habitus, encourage weight loss
PT OT eval
# h/o A-fib status post ablation
not on AC
DVT ppx: SCD (pt has been refusing)
FC
DW GS
DW at bedside
Anticipated Discharge: 24 - 48 hours
Subjective/Interval History
-
Date of Service: July 09, 2025
Objective Data
-
Labs:
Laboratory Results
07/09/25
05:25
WBC 7.2
Hgb 13.3
Hct 39.7
Plt Count 124 L
Sodium 133 L
Potassium 3.8
Chloride 105
Carbon Dioxide 24
BUN 14
Creatinine 0.8
Glucose 104 H
Calcium 8.7
Total Bilirubin 4.1 H
AST 105 H
ALT 198 H
Alkaline Phosphatase 82
Vital Signs:
Vital Signs
Temp Pulse Resp BP Pulse Ox
36.6 C 65 16 148/69 96
07/09/25 07:41 07/09/25 07:41 07/09/25 07:41 07/09/25 07:41 07/09/25 07:41
I&O
07/08/25 07/09/25 07/10/25
06:59 06:59 05:59
Intake Total 980 / 980
Balance 980 / 980
Review of Systems
-
History Source: Patient
All other systems: Reviewed and negative
Abdomen/GI: Denies Abdominal Pain (much resolved )
Physical Exam
-
General: Well Developed, Well Nourished, No Apparent Distress, Comfortable, Conversant and Obese; Negative Respiratory Distress
HEENT: Normocephalic, Atraumatic, Nose Appears Normal and Ears Appear Normal; Negative Oxygen
Respiratory: Clear to Auscultation and Non Labored Respirations; Negative Accessory Resp Muscle Use
Cardiac: Regular Rhythm and S1/S2
GI: Soft, Nontender, Nondistended and Normal Bowel Sounds
Skin: Warm and Dry
Neuro: Awake, Alert, Oriented, AO x 3 and Nonfocal/Grossly Intact
Psych: Calm and Intact Judgement/Insight
Data Reviewed
-
CT Scan: Report Reviewed by me
Ultrasound: Report Reviewed by me
MRI: Report Reviewed by me and Discussed with Family
Labs: Labs Reviewed by me
--- NOTE | 2025-07-09 18:16 | W.IMMPOSTOP ---
Surgical Immed Post Op Note
-
Primary Surgeon: Vianney
Assisting Surgeon: CONNER Robles
Pre-op Diagnosis: Choledocholithiasis
Post-op Diagnosis: Choledocholithiasis
Procedure Performed: Laparoscopic cholecystectomy with IOC
Anesthesia Type: General
Specimen / Cultures:
1. Gallbladder
Estimated Blood Loss: 51 cc
Complications: None
Operative Findings:
1. GB distended, mild wall thickening, fatty and omental adhesions soft, fatty and friable liver
2. Critical view
3. IOC negative
4. Duct and artery with clips
[2025-07-09 18:32] LABS: Glucose - Point of Care 158 mg/dl (70-99)
[2025-07-09] MEDS: ZOFRAN 4 MG IV (18:38)
[2025-07-09] MEDS: DILAUDID 0.25 MG IV (18:51)
[2025-07-09] MEDS: ZOSYN IV (19:18)
[2025-07-09] MEDS: NORMOSOL-R/PLASMALYTE-A 1000 IV (19:36)
[2025-07-10 03:16] VITALS: BP 145/84
[2025-07-10] MEDS: NORMOSOL-R/PLASMALYTE-A 1000 IV (05:03)
[2025-07-10] MEDS: TYLENOL 650 MG PO (05:04)
[2025-07-10] MEDS: ZOSYN 50 IV ×2 (05:42→11:08)
[2025-07-10 07:27] VITALS: BP 157/87
[2025-07-10 09:40] LABS: Hematocrit 38.6 % (39.0-52.0); Hemoglobin 13.3 g/dL (13.0-18.0); Mean Corp Hgb Conc. 34.5 g/dL (33.0-37.0); Mean Corpuscular Volume 89.4 fL (80.0-94.0); Nucleated Red Blood Cells % 0 % (-); Platelet Count 133 10^3/uL (130-400); Red Cell Dist. Width 13.7 % (11.5-14.5)
[2025-07-10 09:44] LABS: ALT (SGPT) 182 U/L (0-50); AST (SGOT) 115 U/L (17-59); Albumin 3.4 g/dl (3.5-5.0); Alkaline Phosphatase 81 U/L (38-126); Blood Urea Nitrogen 15 mg/dl (9-20); Calcium 8.2 mg/dl (8.4-10.2); Carbon Dioxide 23 mmol/L (22-30); Chloride 106 mmol/L (98-107); Estimated Creatinine Clearance 106 ml/min; Glucose 126 mg/dl (70-99); Potassium 4.3 mmol/L (3.5-5.1); Sodium 136 mmol/L (135-145); Total Protein 6.3 g/dl (6.3-8.2); eGFR > 60.00
--- NOTE | 2025-07-10 10:00 | W.PN.GS2 ---
Addendum entered and electronically signed by Yung Faith MD 07/10/25 10:44:
Patient seen and examined.
Feels significantly improved. Previously noted upper mid back pain that been present for weeks to months has now resolved. No significant postoperative pain. No nausea or vomiting. No fevers.
Gen: NAD
Abd: soft, minimal tenderness, ND/obese, non-peritoneal, incisions c/d/i - no erythema, ecchymosis or drainage
Patient is a 79 yo M p/w likely choledocholithiasis with cholangitis with klebsiella bacteremia
POD #1 Lap alma, chronic cholecystitis noted intraop
AFVSS
No leukocytosis
LFT's continue trending down
Initial blood cx with klebsiella pn., repeat set from 07/08 with NGTD
Plan:
-- Low fat diet
-- Analgesics as needed
-- D/C IVF
-- OOB/Ambulate
-- OK for d/c from surgical standpoint. ABX as per primary team. d/c instructions updated
Original Note:
Today's Communication / Plan
-
dispo planning
Assessment / Plan
-
79 yo male p/w likely choledocholithiasis with cholangitis with klebsiella bacteremia
POD #1 Lap alma, chronic cholecystitis noted intraop
AFVSS
No leukocytosis
LFT's continue trending down
Initial blood cx with klebsiella pn., repeat set from 07/08 with NGTD
Plan:
Low fat diet
Analgesics as needed
D/C IVF
OOB/Ambulate
Ok for d/c from surgical standpoint. ABX as per primary team. d/c instructions updated
Subjective Data
-
Date of Service: July 10, 2025
Pt seen and examined at bedside with Dr. Faith. Doing well post operatively. Denies much discomfort. Slept well. Notes that the mid back pain he has been having is now gone. Denies n/v. Tolerating diet.
Objective Data
-
Intake and Output
07/09/25 07/10/25 07/11/25
06:59 05:59 06:59
Intake Total 980 / 980 605 / 605
Balance 980 / 980 605 / 605
Intake:
Oral fluids 780 / 780 480 / 480
IV fluids (Total) 100 / 100 75 / 75
normosol 75 / 75
IV piggybacks 100 / 100 50 / 50
Other:
Number of approximated MODERATE 3 3
amounts of urine
Vital Signs
Temp Pulse Resp BP Pulse Ox
97.5 F 57 18 157/87 96
07/10/25 07:27 07/10/25 07:27 07/10/25 07:27 07/10/25 07:27 07/10/25 07:27
Lab Results
07/10/25 07:09
07/10/25 07:09
Calcium 8.2 mg/dl (8.4-10.2) L 07/10/25 07:09
Total Bilirubin 2.0 mg/dl (0.2-1.3) H D 07/10/25 07:09
Direct Bilirubin 4.5 mg/dl (0.0-0.4) H 07/08/25 06:07
AST 115 U/L (17-59) H 07/10/25 07:09
ALT 182 U/L (0-50) H 07/10/25 07:09
Alkaline Phosphatase 81 U/L (38-126) 07/10/25 07:09
Total Protein 6.3 g/dl (6.3-8.2) 07/10/25 07:09
Albumin 3.4 g/dl (3.5-5.0) L 07/10/25 07:09
Physical Exam
-
NAD
ABD soft, nt, nd
Incisions well approximated with intact glue
Patient has a figueroa catheter: No
Patient has a central line: No
--- NOTE | 2025-07-10 10:48 | W.PN.HOSP.TC ---
Today's Communication/Plan
-
see A/P
OK for discharge after tolerates low fat diet
Assessment / Plan
Assessment / Plan
HPI: 79-year-old male with PMH A-fib status post ablation, achalasia after ablation; p/w chest pain that woke him up in the morning.
He also c/o chills and felt tachycardic, with concern of being in A fib, hence presented to the hospital.
He c/o lower abdominal pain for about 2 weeks, and ongoing lower back pain for about 1 month.
Denies to other symptoms.
Admission CT AP:
1. Mild wall thickening of the distal esophagus, which may be related to esophagitis or Donovan's esophagus.
2. No evidence of intestinal obstruction, bowel inflammatory process, nephrolithiasis, hydronephrosis, cholecystitis, or abscess formation.
3. Colonic diverticulosis without evidence of acute diverticulitis.
Abd US:
1. Multiple gallstones are seen within the gallbladder. No sonographic evidence of acute cholecystitis.
2. No additional sonographic abnormalities demonstrated.
A/P:
# severe sepsis POA, source likely ascending cholangitis with bacteremia
# transaminitis likely due to above, improving
# Localized chest pain likely due to esophagitis noted on CT
MRI MRCP did not show bile duct dilatation, no choledocholithiasis. Noted cholelithiasis and biliary sludge. No evidence to suggest acute cholecystitis.
Admission blood cultures grew Klebsiella, sensitivity reviewed
repeat blood culture negative
Zosyn -> Augmentin for 7 more days
s/p Lap alma 07/10
appreciate GI/GS input
Check outpt LFT with result to PCP
# Lower back pain
CT showed No focal aggressive osseous lesions are seen. Mild degenerative change within the lumbar spine.
Suspect due to body habitus, encourage weight loss
PT OT cleared for home
# h/o A-fib status post ablation
not on AC
DVT ppx: SCD (pt has been refusing)
FC
DW GS
Anticipated Discharge: Today
Subjective/Interval History
-
Date of Service: July 10, 2025
Objective Data
-
Labs:
Laboratory Results
07/10/25
07:09
WBC 7.2
Hgb 13.3
Hct 38.6 L
Plt Count 133
Sodium 136
Potassium 4.3
Chloride 106
Carbon Dioxide 23
BUN 15
Creatinine 0.7
Glucose 126 H
Calcium 8.2 L
Total Bilirubin 2.0 H D
AST 115 H
ALT 182 H
Alkaline Phosphatase 81
Vital Signs:
Vital Signs
Temp Pulse Resp BP Pulse Ox
36.4 C 57 18 157/87 96
07/10/25 07:27 07/10/25 07:27 07/10/25 07:27 07/10/25 07:27 07/10/25 07:27
I&O
07/09/25 07/10/25 07/11/25
06:59 05:59 06:59
Intake Total 980 / 980 605 / 605
Balance 980 / 980 605 / 605
Review of Systems
-
History Source: Patient
All other systems: Reviewed and negative
Abdomen/GI: Denies Abdominal Pain
Physical Exam
-
General: Well Developed, Well Nourished, No Apparent Distress, Comfortable, Conversant and Obese; Negative Respiratory Distress
HEENT: Normocephalic, Atraumatic, Nose Appears Normal and Ears Appear Normal; Negative Oxygen
Respiratory: Clear to Auscultation and Non Labored Respirations; Negative Accessory Resp Muscle Use
Cardiac: Regular Rhythm and S1/S2
GI: Soft, Nontender, Nondistended and Normal Bowel Sounds
Skin: Warm and Dry
Neuro: Awake, Alert, Oriented, AO x 3 and Nonfocal/Grossly Intact
Psych: Calm and Intact Judgement/Insight
Data Reviewed
-
CT Scan: Report Reviewed by me
Ultrasound: Report Reviewed by me
MRI: Report Reviewed by me and Discussed with Family
Labs: Labs Reviewed by me
--- NOTE | 2025-07-10 11:27 | W.PN.GI.CBS2 ---
Today's Communication / Plan
-
See assessment and plan for details.
Assessment / Plan
-
1. Epigastric pain/elevated LFTs: Suspicious for possible CBD stone likely passed given resolution of pain, with cholangitis given bacteremia. He is not doing very well postcholecystectomy, with improved LFTs and resolution of pain. Would
complete a course of antibiotics for bacteremia, hold on further GI workup for now.
2. History of achalasia : Had followed at the [facility], though no intervention was done, no significant symptoms now.
We will sign off now, please call back with any further questions.
-
Subjective
Subjective
Date of Service: July 10, 2025
Patient feeling much better overall, denies any abdominal pain since her surgery, had clears that difficulty, no fever or chills.
Objective
Data Reviewed
Laboratory Data:
Laboratory Results
07/10/25 07:09
07/10/25 07:09
Laboratory Results
Total Bilirubin 2.0 mg/dl (0.2-1.3) H D 07/10/25 07:09
AST 115 U/L (17-59) H 07/10/25 07:09
ALT 182 U/L (0-50) H 07/10/25 07:09
Alkaline Phosphatase 81 U/L (38-126) 07/10/25 07:09
Lipase 106 U/L (23-300) 07/09/25 05:25
Vital Signs and I&O:
Vital Signs
Temp Pulse Resp BP Pulse Ox
97.5 F 57 18 157/87 96
07/10/25 07:27 07/10/25 07:27 07/10/25 07:27 07/10/25 07:27 07/10/25 07:27
I&O
07/09/25 07/10/25 07/11/25
06:59 05:59 06:59
Intake Total 980 / 980 605 / 605
Balance 980 / 980 605 / 605
Physical Exam
Physical Exam
General: NAD
Abdomen: normal bowel sounds, soft, no tenderness, no masses or bruits, no ascites
[2025-07-10 11:32] VITALS: BP 155/77
--- NOTE | 2025-07-10 11:45 | CM ---
Pt is discharged home with who will transport him, No needs
--- NOTE | 2025-07-10 13:48 | W.DCSUMMARY ---
Discharge Summary
Discharge Data
Date of Admission: 07/07/25
Date of Discharge: 07/10/25
Total time spent discharging patient (in min): 40
-
Pending Results: No
Hospital Course
Principal Diagnosis:
Severe sepsis POA, source likely ascending cholangitis with Klebsiella bacteremia
Transaminitis due to above, improving
Chronic Diagnoses:�
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
h/o A-fib status post ablation
Consultations:�
General Surgery
Gastroenterology
Procedures:�
Lap alma 07/10/2025
Clinical course:�
This is a 79-year-old male with past medical history as stated above, who presented with epigastric pain. He also complained of chills.
Problem 1:
Severe sepsis POA, source likely ascending cholangitis with bacteremia.
This was associated with transaminitis.
His MRI MRCP did not show bile duct dilatation, no choledocholithiasis. It did note cholelithiasis and biliary sludge without acute cholecystitis.
The patient received IV Zosyn while in the hospital for blood culture that grew Klebsiella. Repeat blood culture was negative.
He was discharged to continue oral Augmentin for 7 more days (total course 10 days).
He underwent lap cholecystectomy 07/10/2025.
He can check repeat LFT outpatient with result to his PCP.
He has been informed to continue low-fat diet going forward.
As for the rest of his medical problems, they were stable during his hospital stay.
Discharge Plan
-
Patient Disposition: Home (Routine Discharge)
Discharge Diagnosis/Procedures: Presumed choldeocholithiasis with cholangitis;
Bacteremia with Klebsiella;
status post Laparoscopic cholecystectomy with cholangiogram
Condition: Good
Diet: Regular and Low Fat
Additional Diets: If issues with bloating or diarrhea follow a low-fat diet
Activity: No strenuous activity
Additional Activity: No heavy lifting (>20 lbs) or strenuous activities for 2 to 3 weeks postoperatively
Driving Restrictions: No driving if too sore or taking narcotics
Bathing Restrictions: OK to Shower
Blood Work: CMP in 1 week, result to PCP
Wound Care: Keep incisions clean and dry. Glue will flake off in 2 to 3 weeks. Stitches will dissolve. Use ice to the abdomen to reduce any bruising or swelling.
Activity Restrictions/Additional Instructions:
Call for fevers (>100.5), nausea vomiting, worsening abdominal pain
Referrals:
Yung Faith MD [Active, Surgical] - in two to four weeks
Randy Cassidy MD [Family Provider, Internal Medicine] - in less than 1 week
Additional Discharge Medication Instructions: Continue Augmentin for 7 more days
Prescriptions:
New
amoxicillin-pot clavulanate [Augmentin XR] 1,000-62.5 mg tablet extended release 12 hr
1 tab PO Q12H 7 Days Qty: 14 0RF
(DME) CMP
See Rx Instructions .Route .MEDSUPPLY Qty: 1 0RF
Rx Instructions:
CMP 07/13-07/23
Results to PCP
# Cholangitis
Continued
coenzyme Q10 [Co Q-10] 100 mg Capsule
300 mg PO QPM
cholecalciferol (vitamin D3) 250 mcg (10,000 unit) Tablet
250 mcg PO QPM
therapeutic multivitamin Tablet
1 tab PO DAILY
niacin 100 mg Tablet
100 mg PO DAILY
Discharge Orders:
Discharge Patient (As Directed); Ordered 07/10/25
Ordered By: Tori Hanson
Discharge Date and Time
Print Language: YAKUT
== END 2025-07-10 14:04 | disposition home or self-care (01) | DRG 418 ==
LOC: 4 EAST ACU 13:36
PROVIDERS: Nurse Practitioner Family; ADMITTING PHYSICIAN Internal Medicine; CONSULT PHYSICIAN Internal Medicine; CONSULT PHYSICIAN Surgery; EMERGENCY PHYSICIAN Student in an Organized Health Care Education/Training Program; FAMILY PHYSICIAN Internal Medicine Geriatric Medicine
PROC: 0FT44ZZ Resection of Gallbladder, Percutaneous Endoscopic Approach (ICD-10-PCS; 2025-07-09)
PROC: BF5C2Z0 Other Imaging of Hepatobiliary System, All using Fluorescing Agent, Intraoperative (ICD-10-PCS; 2025-07-09)
DX: K80.62 Calculus of gallbladder and bile duct with acute cholecystitis without obstruction (principal); K83.09 Other cholangitis; Z11.52 Encounter for screening for COVID-19; E66.9 Obesity, unspecified; Z68.34 Body mass index [BMI] 34.0-34.9, adult; G89.29 Other chronic pain; K82.8 Other specified diseases of gallbladder
CPT/HCPCS: 71046; 74177; 74183; 74300; 76000; 76700; 80053; 81003; 81015; 82248; 82962; 83605; 83690; 84484; 85025; 87040; 87077; 87154; 87186; 87205; 87502; 87811; 88304; 93005; 96360; 99285; A4300; A9575; Q9967